=== PATIENT | male | born 1940 | race Caucasian/White ===

== ENCOUNTER 2016-07-19 09:11 | Day surgery (SDC) | payer OTHER ==
[2016-07-16 10:28] LABS: MANUAL DIFF NEEDED? NO
[2016-07-16 10:31] LABS: BASO% 0.4 % (0.0-0.8); EOS# 0.19 X1000 (0.0-0.7); EOS% 2.8 % (0.0-10.0); HEMATOCRIT 48.8 % (42.0-52.0); HEMOGLOBIN 16.4 g/dL (14.0-18.0); LYMPH# 1.87 X1000 (1.2-3.4); LYMPH% 27.7 % (20.5-51.1); MCH 29.4 PG (27-31); MCHC 33.6 g/dL (33-37); MCV 87.5 FL (81-99); MONO# 0.88 X1000 (0.11-0.59); MONO% 13.1 % (1.7-9.3); MPV 9.8 FL (7.4-10.4); PLT 258 X1000 (130-400); RBC 5.58 XMIL (4.7-6.1)
--- NOTE | 2016-07-16 10:36 | EKG Report ---
Test Performed on : 07/16/2016 10:18:52 AM Test Reason : PAT Blood Pressure : / mmHG Vent. Rate : 078 BPM Atrial Rate : 078 BPM P-R Int : 156 ms QRS Dur : 100 ms QT Int : 382 ms P-R-T Axes : 067 -47 043 degrees QTc Int : 435 ms Normal sinus rhythm. Left anterior fascicular block Abnormal ECG No previous ECGs available Confirmed by Blade MORALES, Hardy Gil ([id number]) on 07/16/2016 4:27:35 PM
[2016-07-16 10:40] LABS: INR 1.02; PROTIME 10.8 Seconds (9.2-11.7); PTT 27.1 Seconds (22.0-36.0)
[2016-07-16 11:10] LABS: CALCIUM 9.5 mg/dL (8.8-10.2); POTASSIUM 4.1 mmol/L (3.5-5.1)
[2016-07-19] MEDS ORDERED: PEPCID ONE (10:17)
[2016-07-19] MEDS ORDERED: LEVAQUIN 500 MG/D5W 100 ML ONE (10:17)
[2016-07-19] MEDS ORDERED: REGLAN ONE (10:17)
[2016-07-19] MEDS ORDERED: GENTAMICIN 80 MG/NS 50 ML ONE (10:18)
[2016-07-19] MEDS ORDERED: LR 1,000 ML ONE (10:18)
[2016-07-19] MEDS ORDERED: DIPRIVAN 1% ONE (12:00)
[2016-07-19] MEDS ORDERED: ROBINUL ONE (12:22)
[2016-07-19] MEDS ORDERED: XYLOCAINE-MPF 2% ONE (12:23)
[2016-07-19 13:04] VITALS: BP 163/83
--- NOTE | 2016-07-19 16:37 | OPERATIVE NOTE ---
PROCEDURE DATE: 07/19/2016 PREOPERATIVE DIAGNOSES: 1. Elevated prostate-specific antigen. 2. PCS-3 positive. 3. Nodular prostate, rule out cancer of prostate. 4. Benign prostatic hypertrophy with bladder outlet obstruction. POSTOPERATIVE DIAGNOSES: 1. Elevated prostate-specific antigen. 2. PCS-3 positive. 3. Nodular prostate, rule out cancer of prostate. 4. Benign prostatic hypertrophy with bladder outlet obstruction. PROCEDURE: Transrectal ultrasound of the prostate and multiple biopsy of the prostate (saturated biopsies). ANESTHESIA: General. SURGEON: Nessa Brandt MD DESCRIPTION OF PROCEDURE: The patient was explained about the risks and benefits. He was mechanically well prepped and preoperative antibiotics were given intravenously. He was induced with general anesthesia. The biplane transrectal probe from [employer] ultrasound machine was introduced into the rectum and the prostate was scanned. The architecture of the prostate was well maintained. The prostate was was over 48 mL. Here, there were numerous intraprostatic calcifications. There were several hypoechoic areas as well, these were present in both lobes. Thereafter, we did take biopsy, 3 from the right base, 3 from the right mid zone, and 3 from the apex on the right side. In a likewise fashion, we did the biopsies from the left side and this is where we got 18 core biopsies and the sampling was satisfactory. In addition to that, I had 2 biopsies from the right nodule and a left nodule. The patient did have some bleeding of the urethra. I did not put any catheter and if he goes into retention we may have to put 1 in, connect it to leg bag. We will have the biopsy report next week and I will go over with the patient.
== END 2016-07-19 13:02 | disposition home or self-care (01) ==
LOC: PAT 09:11
PROVIDERS: ATTEND Specialist
DX: C61 Malignant neoplasm of prostate (principal); N40.1 Benign prostatic hyperplasia with lower urinary tract symptoms; N13.8 Other obstructive and reflux uropathy; I10 Essential (primary) hypertension; M19.90 Unspecified osteoarthritis, unspecified site
CPT/HCPCS: 76942; 80048; 85025; 85610; 85730; 88305; 93005; 93010; J1580; J7120